=== PATIENT | male | born 1940 | race Caucasian/White ===

== ENCOUNTER → 2018-02-22 | Outpatient (CLI) | payer MEDICARE ==
[2018-02-22 11:48] LABS: INR 1.76 (0.85-1.15); PROTHROMBIN TIME 18.3 SEC (9.6-11.6)
== END | disposition home or self-care (01) ==
LOC: RAH 10:16
PROVIDERS: ATTEND Family Medicine
DX: I48.4 Atypical atrial flutter (principal)
CPT/HCPCS: 36415; 85610